=== PATIENT | female | born 1960 | race African-American/Black ===

== ENCOUNTER 2019-09-24 10:40 | Emergency (ER) | payer OTHER ==
[~2019-09-24] VITALS: Ht 170.2 cm; Wt 77.1 kg
[2019-09-24] MEDS ORDERED: LIPITOR40 MG PO (11:12)
[2019-09-24] MEDS ORDERED: AMITRIPTYLINE100 MG PO (11:12)
[2019-09-24 11:59] LABS: URINE BILIRUBIN NEGATIVE (Negative); URINE BLOOD NEGATIVE (Negative); URINE CLARITY CLEAR; URINE COLOR YELLOW; URINE GLUCOSE-RANDOM* NEGATIVE (Negative); URINE KETONES NEGATIVE (Negative); URINE LEUKOCYTES-REFLEX TRACE (Negative); URINE NITRITE-REFLEX NEGATIVE (Negative); URINE PROTEIN (DIPSTICK) NEGATIVE (Negative); URINE SPECIFIC GRAVITY <= 1.005 (1.005-1.035); URINE UROBILINOGEN 0.2 E.U./dl (0.2-1.0)
[2019-09-24 12:08] LABS: AMP/METHAMP Negative (Negative); BARBITURATES Negative (Negative); BENZODIAZEPINES Negative (Negative); COCAINE Negative (Negative); METHADONE Negative (Negative); OPIATES POSITIVE (Negative); PCP Negative (Negative)
[2019-09-24 12:09] LABS: ABSOLUTE NEUTROPHILS 4.8 thou/uL (1.4-8.2); BASOPHILS 1.1 % (0.0-2.0); HEMATOCRIT 39.2 % (37.0-47.0); HEMOGLOBIN 13.3 gm/dL (12.0-15.0); LYMPHOCYTES 29.9 % (24.0-44.0); MCH 30.4 pg (26.0-34.0); MCV 89.5 fL (80.0-100.0); MONOCYTES 6.5 % (1.0-8.0); PLATELET COUNT 301 thou/uL (150-400); POLYS 59.5 % (36.0-66.0); RBC 4.38 mil/uL (4.20-5.00); RDW 15.8 % (10.5-14.5)
[2019-09-24 12:26] LABS: ANION GAP 8 mmol/L (7-16); BUN 8 mg/dL (7-18); CALCIUM 8.7 mg/dL (8.5-10.1); CHLORIDE 99 mmol/L (98-107); CO2 29 mmol/L (21-32); CREATININE 0.9 mg/dL (0.6-1.0); GLUCOSE 119 mg/dL (74-106); POTASSIUM 3.5 mmol/L (3.5-5.1); SODIUM 136 mmol/L (136-145)
[2019-09-24 12:38] LABS: ALBUMIN 3.7 g/dL (3.4-5.0); DIRECT BILIRUBIN 0.1 mg/dL (<0.1-0.2); LIPASE 92 U/L (73-393); SGOT 20 U/L (15-37); SGPT 26 U/L (30-65); TOTAL BILIRUBIN 0.4 mg/dL (0.2-1.0); TOTAL PROTEIN 7.4 g/dL (6.4-8.2); TROPONIN-I <0.06 ng/mL (<0.06)
[2019-09-24] MEDS ORDERED: ATROVENT HFA14 GM INH (12:44)
[2019-09-24] MEDS ORDERED: FLOVENT DISKU100 MCG INH (12:45)
[2019-09-24] MEDS ORDERED: GRALISE600 MG PO (12:46)
[2019-09-24] MEDS ORDERED: HYDROCHLOROTHIA25 M2 PO (12:48)
[2019-09-24] MEDS ORDERED: GLIPIZIDE 10 MG10 MG PO (12:48)
[2019-09-24] MEDS ORDERED: HYDROCODON-ACE1 EAC7 PO (12:49)
[2019-09-24] MEDS ORDERED: SYNTHROID75 MCG PO (12:50)
[2019-09-24] MEDS ORDERED: LOSARTAN POTASS50 MG PO (12:51)
[2019-09-24] MEDS ORDERED: NAPROSYN500 MG PO (12:53)
[2019-09-24] MEDS ORDERED: OMEPRAZOLE40 MG PO (12:53)
[2019-09-24] MEDS ORDERED: ZUPLENZ4 MG PO (12:54)
[2019-09-24] MEDS ORDERED: PAXIL40 MG PO (12:55)
[2019-09-24] MEDS ORDERED: SENNA PLUS TAB1 EACH PO (12:55)
[2019-09-24] MEDS ORDERED: FLOMAX0.4 MG PO (12:56)
[2019-09-24] MEDS ORDERED: TIZANIDINE HCL4 M1 PO (12:57)
[2019-09-24] MEDS ORDERED: VENTOLIN HFA 1818 GM INH (12:58)
[2019-09-24] MEDS ORDERED: METFORMIN HCL500 M3 PO (12:59)
[2019-09-24 13:45] VITALS: BP 142/98
--- NOTE | 2019-09-25 10:47 | EKG ---
[facility] [place] [address] ELECTROCARDIOGRAM REPORT Name: KIKE BALTAZAR Room #: [facility]#: [id number] Admission: 09/24/19 Attend Phys: Discharge: 09/24/19 Date of : 60 Report #: [id number] THIS REPORT FOR: cc: FRANCIE - Ewelina family physician/PCP FRANCIE - Ewelina family physician/PCP Jaison Draper MD ~ THIS REPORT FOR: //name// [facility] ED Test Date: 2019-09-24 Test Time: 12:30:06 Pat Name: KIKE BALTAZAR Department: Room: Gender: F Voice Intercept Technician: : 1960 Requested By: Thanh Oviedo Order Number: [id number] MD: Jaison Draper Measurements Intervals [place] Rate: 71 P: 27 PA: 151 QRS: 10 QRSD: 112 T: 122 QT: 422 QTc: 459 Interpretive Statements Sinus rhythm Probable anterior infarct, age indeterminate No previous ECG available for comparison Electronically Signed On 09-25-2019 10:47:14 CDT by Jaison Draper [email or web address] <ELECTRONICALLY SIGNED> By: Jaison Draper MD 09/25/19 1047 123 29 Jaison Draper MD /[place]
== END 2019-09-24 14:03 | disposition home or self-care (01) ==
LOC: ER 10:40
PROVIDERS: Emergency Medicine
DX: R05 Cough (principal); G89.29 Other chronic pain; M54.5 Low back pain; R11.0 Nausea; J44.9 Chronic obstructive pulmonary disease, unspecified; K21.9 Gastro-esophageal reflux disease without esophagitis; E03.9 Hypothyroidism, unspecified; Z79.899 Other long term (current) drug therapy; Z88.6 Allergy status to analgesic agent; Z88.8 Allergy status to other drugs, medicaments and biological substances; Z88.0 Allergy status to penicillin; Z20.828 Contact with and (suspected) exposure to other viral communicable diseases

== ENCOUNTER 2020-02-05 09:25 | Emergency (ER) | payer OTHER ==
[~2020-02-05] VITALS: Ht 170.2 cm; Wt 113.4 kg
--- NOTE | ~2020-02-05 | EMS ---
[facility] [place] [address] [place] [address] EMS Patient Care Report Name: KIKE BALTAZAR Room #: REG [facility]#: [id number] Admission: 02/05/20 Attend Phys: Discharge: Date of : 60 Report #: [id number] THIS REPORT FOR: //name// Report Transmitted: 02/05/2020 10:07 EMS Care Summary [place], [place]/[facility] Incident [id number] @ 02/05/2020 08:46 Incident Location [address] [place] [address] Patient KIKE BALTAZAR Female, 60 Years 1960 Patient Address [address] [place] [address] Patient History Hypertension (HTN),Stroke/CVA,Gastro-Esophageal Reflux Disease (GERD),Gastric Ulcer,Bipolar II Disorder,Depression,Hypothyroidism,Sleep Apnea,Back Pain (Chronic),Type 2 Diabetes, Patient Allergies Aspirin,Penicillin allergy,Lisinopril,Ibuprofen,Lyrica,Lipitor, Patient Medications Gabapentin, Senna, Flovent, Tamsulosin, Amitriptyline, [place], Losartan, None Reported, Ondansetron, Omeprazole, Atrovent, Metformin, Tizanidine, Levothyroxine, Albuterol, Atorvastatin, Hydrochlorothiazide (Hctz), Naproxen, Glipizide, Paroxetine, Chief Complaint SHORTNESS OF BREATH Disposition Transported No Lights/[place] Dispatch Reason Sick Person Transported To [facility] [address] [place] [address] EMS Patient Care Report Name: KIKE BALTAZAR Room #: REG TONI [facility]#: [id number] Admission: 02/05/20 Attend Phys: Discharge: Date of : 60 Report #: [id number] Narrative DISPATCHED TO A SICK. ARRIVED ON SCENE TO FIND FEMALE PATIENT SEATED IN A CHAIR IN THE FRONT ROOM. PATIENT SAID SHE GOT UP THIS MORNING AT ABOUT 5 AM FEELING SHORT OF BREATH. SHE SAID IT HAS GOTTEN WORSE SINCE THEN. SHE WAS DIAGNOSED WITH COVID 19, PNEMONIA, AND A BROKEN LEFT RIB ON THE December. SHE IS TAKING MEDICATION FOR THE PNEMONIA. PATIENT SAID SHE IS ALSO HAVING RIB PAIN, AND BACK PAIN WHICH IS A CHRONIC PROBLEM FOR HER. PATIENT VITALS WERE OBTAINED ALONG WITH LUNG SOUNDS. SHE WAS ASSISTED IN WALKING TO THE COT OUTSIDE THE FRONT DOOR, SEATED, SECURED WITH STRAPS, AND MOVED TO THE AMBULANCE. PATIENT VITALS WERE REOBTAINED AND SHE WAS PUT ON A 3 LEAD. PATIENT WAS PLACED ON OXYGEN AND TRANSPORTED TO THE HOSPITAL. PATIENT VITALS AND INTERVENTIONS WERE MONITORED ENROUTE TO THE HOSPITAL. DURING TRANSPORT SHE SAID THAT SHE FELT LIKE THE OXYGEN IS HELPING WITH HER SHORNESS OF BREATH. UPON ARRIVAL AT THE HOSPITAL PATIENT WAS MOVED TO ED ROOM 6 ON THE COT AND ASSISTED IN MOVING OVER TO THE HOSPITAL BED. PATIENT CARE WAS TURNED OVER TO ED NURSING STAFF. Initial Vitals @09:00P: 82,R: 18,BP: 136/82,Pain: 6/10,GCS: 15,Glucose: 166,SpO2: 96,Revised Trauma: 12,VA Suspected: false @09:10P: 84,R: 18,BP: 156/84,Pain: 6/10,GCS: 15,SpO2: 100,Revised Trauma: 12, Assessments @08:52MENTAL:Person Oriented,Time Oriented,Event Oriented,Place Oriented,SKIN:HEENT:Head/Face: No Abnormalities,Neck/Airway: No Abnormalities,LUNG SOUNDS:General: No Abnormalities,Left Upper: No Abnormalities,Right Upper: No Abnormalities,Left Lower: No Abnormalities,Right Lower: No Abnormalities,ABDOMEN:General: No Abnormalities,Left Upper: No Abnormalities,Right Upper: No Abnormalities,Left Lower: No Abnormalities,Right Lower: No Abnormalities,PELVIS//GI:No Abnormalities,EXTREMITIES:Capillary Refill: Right Upper: < 2 Sec,Left Arm: No Abnormalities,Right Arm: No Abnormalities,Left Leg: No Abnormalities,Right Leg: No Abnormalities,PULSE:Radial: 1+ [place],NEURO:No Abnormalities, Impression Pneumonia Procedures @08:52ALS AssessmentResponse: UnchangedSucceeded@09:003-Lead ECGResponse: UnchangedSucceeded@09:01Oxygen FlowRate: 4 Device: Nasal Cannula (NC) Response: UnchangedSucceeded Timeline 08:44,Call Received 08:44,Dispatch Notified 08:46,Dispatched 08:48,En Route [address] [address] EMS Patient Care Report Name: KIKE BALTAZAR KINGA Room #: REG TONI Rivera#: [id number] Admission: 02/05/20 Attend Phys: Discharge: Date of : 60 Report #: [id number] 08:51,On Scene 08:52,At Patient 08:52,ALS Assessment,Response: UnchangedSucceeded, 09:00,3-Lead ECG,Response: UnchangedSucceeded, 09:00,BP: 136/82 M,PULSE: 82,RR: 18 R,SPO2: 96 Ox,ETCO2: ,B,PAIN: 6,GCS: 15, 09:01,Oxygen FlowRate: 4 Device: Nasal Cannula (NC) Response: UnchangedSucceeded, 09:07,Depart Scene 09:10,BP: 156/84 M,PULSE: 84,RR: 18 R,SPO2: 100 Ox,ETCO2: ,BG: ,PAIN: 6,GCS: 15, 09:21,At Destination 09:34,Call Closed Disclaimer v1.1 Copyright 2020 [employer] This EMS Care Summary contains data elements from the applicable legal record (which may be displayed differently). It is designed to provide pertinent information for the following purposes: continuity of care, clinical quality, and state data reporting. The complete legal record is available to ED staff and administrators of the receiving hospital in [facility] Patient Tracker. All data is provided "as is."
[~2020-02-05 09:25] MED LIST: AMITRIPTYLINE100 MG PO; ATROVENT HFA14 GM INH; FLOMAX0.4 MG PO; FLOVENT DISKU100 MCG INH; GLIPIZIDE 10 MG10 MG PO; GRALISE600 MG PO; HYDROCHLOROTHIA25 M2 PO; HYDROCODON-ACE1 EAC7 PO; LIPITOR40 MG PO; LOSARTAN POTASS50 MG PO; METFORMIN HCL500 M3 PO; NAPROSYN500 MG PO; OMEPRAZOLE40 MG PO; PAXIL40 MG PO; SENNA PLUS TAB1 EACH PO; SYNTHROID75 MCG PO; TIZANIDINE HCL4 M1 PO; VENTOLIN HFA 1818 GM INH; ZUPLENZ4 MG PO
--- NOTE | 2020-02-05 10:57 | EKG ---
[facility] [place] [address] ELECTROCARDIOGRAM REPORT Name: KIKE BALTAZAR Room #: [facility]#: [id number] Admission: Attend Phys: Discharge: Date of : 60 Report #: [id number] THIS REPORT FOR: cc: FRANCIE - Ewelina family physician/PCP FRANCIE - Ewelina family physician/PCP Jaison Draper MD ~ THIS REPORT FOR: //name// [facility] ED Test Date: 2020-02-05 Test Time: 09:26:51 Pat Name: KIKE BALTAZAR Department: Room: Gender: F Machine Scallop Cutter: ILIA : 1960 Requested By: Latasha Cintron Order Number: [id number] MD: Jaison Draper Measurements Intervals [place] Rate: 90 P: 63 ME: 151 QRS: 78 QRSD: 66 T: QT: 465 QTc: 569 Interpretive Statements Sinus rhythm Nonspecific T abnormalities, diffuse leads Compared to ECG 09/24/2019 12:30:06 Myocardial infarct finding no longer present Electronically Signed On 02-05-2020 10:57:13 [facility] [employer] by Jaison Draper [email or web address] <ELECTRONICALLY SIGNED> By: Jaison Draper MD 02/05/20 1057 5 5 Jaison Draper MD /[place]
[2020-02-05 11:15] LABS: ABSOLUTE NEUTROPHILS 6.6 thou/uL (1.4-8.2); BASOPHILS 0.8 % (0.0-2.0); EOSINOPHILS 3.4 % (0.0-3.0); HEMATOCRIT 35.3 % (37.0-47.0); HEMOGLOBIN 11.8 gm/dL (12.0-15.0); LYMPHOCYTES 21.2 % (24.0-44.0); MCH 30.4 pg (26.0-34.0); MCHC 33.3 g/dL (28.0-37.0); MCV 91.3 fL (80.0-100.0); PLATELET COUNT 274 thou/uL (150-400); POLYS 67.6 % (36.0-66.0); RBC 3.87 mil/uL (4.20-5.00); RDW 16.8 % (10.5-14.5); WBC 9.7 thou/uL (4.0-11.0)
[2020-02-05 11:26] LABS: URINE BILIRUBIN NEGATIVE (Negative); URINE BLOOD TRACE (Negative); URINE CLARITY CLEAR; URINE COLOR YELLOW; URINE GLUCOSE-RANDOM* NEGATIVE (Negative); URINE KETONES NEGATIVE (Negative); URINE LEUKOCYTES-REFLEX NEGATIVE (Negative); URINE NITRITE-REFLEX NEGATIVE (Negative); URINE PROTEIN (DIPSTICK) NEGATIVE (Negative); URINE SPECIFIC GRAVITY <= 1.005 (1.005-1.035); URINE UROBILINOGEN 0.2 E.U./dl (0.2-1.0)
[2020-02-05 11:32] LABS: ANION GAP 8 mmol/L (7-16); BUN 9 mg/dL (7-18); CALCIUM 8.8 mg/dL (8.5-10.1); CHLORIDE 100 mmol/L (98-107); CO2 31 mmol/L (21-32); CREATININE 0.9 mg/dL (0.6-1.0); GLUCOSE 103 mg/dL (74-106); POTASSIUM 3.1 mmol/L (3.5-5.1); SODIUM 139 mmol/L (136-145)
[2020-02-05 11:42] LABS: DIRECT BILIRUBIN 0.1 mg/dL (<0.1-0.2); SGOT 19 U/L (15-37); SGPT 37 U/L (30-65); TOTAL BILIRUBIN 0.4 mg/dL (0.2-1.0); TOTAL PROTEIN 6.6 g/dL (6.4-8.2); TROPONIN-I <0.06 ng/mL (<0.06)
[2020-02-05 14:14] VITALS: BP 97/68
== END 2020-02-05 14:14 | disposition home or self-care (01) ==
LOC: ER 09:25
PROVIDERS: Emergency Medicine
DX: U07.1 COVID-19 (principal); R07.89 Other chest pain; K59.00 Constipation, unspecified; J44.9 Chronic obstructive pulmonary disease, unspecified; K21.9 Gastro-esophageal reflux disease without esophagitis; E03.9 Hypothyroidism, unspecified; F17.210 Nicotine dependence, cigarettes, uncomplicated; Z79.899 Other long term (current) drug therapy; Z88.0 Allergy status to penicillin; Z88.6 Allergy status to analgesic agent; Z88.8 Allergy status to other drugs, medicaments and biological substances